=== PATIENT | female | born 1970 | race Caucasian/White ===

== ENCOUNTER → 2017-07-08 | Outpatient (CLI) | payer OTHER | LOC: M SMT 09:00 | PROVIDERS: ATTEND Physician Assistant Medical | DX: Z13.1 Encounter for screening for diabetes mellitus (principal) ==

== ENCOUNTER 2018-11-16 17:01 | Emergency (ER) | payer OTHER ==
[~2018-11-16] VITALS: Ht 152.4 cm; Wt 82.5 kg
[2018-11-16] MEDS ORDERED: DULO60CA35 (17:11)
[2018-11-16] MEDS ORDERED: VERA100C (17:11)
[2018-11-16] MEDS ORDERED: CYCL10TA (17:11)
[2018-11-16] MEDS ORDERED: OMEP20CA3 (17:11)
[2018-11-16 17:34] LABS: BASO # 0.1 10^3/uL (0.0-0.2); BASO % 1.1 % (0.0-1.0); EOS # 0.4 10^3/uL (0.0-0.50); EOS % 4.2 % (0.0-3.0); HEMATOCRIT 42.2 % (36.0-47.0); LYMPH # 2.7 10^3/uL (1.5-4.5); LYMPH % 30.8 % (24.0-44.0); MEAN CORPUSCULAR HEMOGLOBIN 29.7 pg (27.0-33.0); MEAN CORPUSCULAR HGB CONC 33.2 g/dl (32.0-36.5); MEAN CORPUSCULAR VOLUME 89.6 fl (80.0-96.0); MONO # 0.5 10^3/uL (0.0-0.8); MONO % 5.7 % (0.0-5.0); NEUTROPHILS # 5.1 10^3/uL (1.8-7.7); NEUTROPHILS % 57.6 % (36.0-66.0); PLATELET COUNT, AUTOMATED 295 10^3/uL (150-450); RED BLOOD COUNT 4.71 10^6/uL (4.00-5.40); WHITE BLOOD COUNT 8.9 10^3/uL (4.0-10.0)
[2018-11-16 18:02] LABS: ALT/SGPT 55 U/L (12-78); BILIRUBIN,DIRECT < 0.1 MG/DL (0.0-0.2); BILIRUBIN,TOTAL 0.3 MG/DL (0.2-1.0); BLOOD UREA NITROGEN 7 MG/DL (7-18); CARBON DIOXIDE LEVEL 29 MEQ/L (21-32); CHLORIDE LEVEL 102 MEQ/L (98-107); CREATININE FOR GFR 0.74 MG/DL (0.55-1.30); GLOMERULAR FILTRATION RATE > 60.0 (>51); GLUCOSE, FASTING 89 MG/DL (70-100); LIPASE 99 U/L (73-393); POTASSIUM SERUM 4.3 MEQ/L (3.5-5.1); SODIUM LEVEL 139 MEQ/L (136-145); TOTAL PROTEIN 7.4 GM/DL (6.4-8.2)
[2018-11-16] MEDS ORDERED: ZOFR4TAB16 PO (19:55)
[2018-11-16] MEDS ORDERED: TRAM50TA2 PO (19:55)
[2018-11-16] MEDS ORDERED: traMADol 50 MG TAB (BULK 4 TAB ED) PO ONE (20:00)
[2018-11-16] MEDS ORDERED: ONDANSETRON 4 MG ORAL DISINTEGRATING TAB (Q0162 PER 1MG) PO ONE (20:00)
[2018-11-16 20:12] VITALS: BP 122/74
== END 2018-11-16 20:15 | disposition home or self-care (01) ==
LOC: M ED 17:01
DX: K81.1 Chronic cholecystitis (principal); I51.9 Heart disease, unspecified; K21.9 Gastro-esophageal reflux disease without esophagitis; M79.7 Fibromyalgia; J30.2 Other seasonal allergic rhinitis; Z79.899 Other long term (current) drug therapy; Z88.8 Allergy status to other drugs, medicaments and biological substances
CPT/HCPCS: 80048; 80076; 81001; 83690; 85025; 87086; 99283; Q0162

== ENCOUNTER → 2018-12-13 | Outpatient (CLI) | payer OTHER ==
[~2018-12-13] MED LIST: CYCL10TA; DULO60CA35; OMEP20CA3; TRAM50TA2 PO; VERA100C; ZOFR4TAB16 PO
--- NOTE | 2018-12-16 21:09 | SLEEPHOME ---
DATE OF PROCEDURE: 12/13/2018 ORDERED BY: Jana Murray Diagnostic home sleep testing was performed due to concern for the obstructive sleep apnea syndrome in this patient with a history of excessive somnolence and nonrestorative sleep. For testing a nocturnal T3 respiratory monitoring device was used. Continuous record was made of pulse, oxygen saturation, airflow, chest, abdominal strain and body position. 10 hours and 59 minutes of data were reviewed. There were 10 hours and 16 minutes marked as time in bed. During the interval marked time in bed, there were 98 respiratory events identified of 10 seconds in duration or greater for a respiratory event index of 9.5. The events were obstructive, mixed and central, all told 45 central and mixed apneas were seen of a total of 98. Baseline pulse rate was 82 beats per minute, pulse rate ranged 64-110. Baseline saturation 93%, saturations fell to 87%. Testing was performed in both the supine and nonsupine positions. IMPRESSION: Abnormal home sleep testing with repetitive respiratory events and oxygen desaturations to 87% with a respiratory event index of 9.5 is consistent with the obstructive sleep apnea syndrome. RECOMMENDATIONS: Given the occurrence of central apneas, the patient should be referred for a formal sleep evaluation and in laboratory pressure titration. A bilevel device and backup rate may be necessary given the occurrence of central apneas.
== END ==
LOC: M SLEEP HO 10:26
PROVIDERS: ATTEND Nurse Practitioner Family
DX: R40.0 Somnolence (principal)

== ENCOUNTER → 2019-06-18 | Outpatient (CLI) | payer OTHER ==
[~2019-06-18] MED LIST changes: -OMEP20CA3; +OMEP20CA4
--- NOTE | 2019-06-21 16:28 | SLEEPCENT ---
DATE OF PROCEDURE: 06/18/2019 ORDERED BY: KACIE Robert Nocturnal polysomnography was performed for the titration of pressure therapy in this patient with obstructive sleep apnea syndrome based on clinical evaluation, confirmed by home testing revealing a respiratory event index of 9.5. For testing a [employer] full-face mask of small size was used, 4 cm of water pressure were applied to the circuit and the lights were extinguished. 8 hours and 26 minutes of data were reviewed. There were 393 minutes of sleep identified. Sleep latency was normal at 14 minutes. Rapid eye movement (REM) sleep was delayed at 360 minutes. Sleep architecture initially fragmented improved and there was a long period of REM sleep at the end of the study. Overall sleep efficiency was 79.3%. The patient's electrocardiogram showed a sinus rhythm with premature ventricular contractions (PVCs), average heart rate 62 beats per minute. EEG showed reasonably normal waveforms for awake and sleep. Respiratory events were best palliated with continuous positive airway pressure (CPAP) at a pressure of +10. There was some activity seen in the limb leads. Limb movement arousal index was 8.5. IMPRESSION: Obstructive sleep apnea syndrome (G47.33). RECOMMENDATIONS: Nightly use of pressure therapy 10 cm of water.
== END ==
LOC: M SLEEP 20:00
PROVIDERS: ATTEND Nurse Practitioner Family
DX: G47.33 Obstructive sleep apnea (adult) (pediatric) (principal)

== ENCOUNTER → 2019-11-03 | Outpatient (CLI) | payer OTHER ==
[~2019-11-03] MED LIST changes: +OMEP1CAP73; -OMEP20CA4; -VERA100C; +VERA100C4
[2019-11-03 15:42] LABS: BLOOD UREA NITROGEN 17 MG/DL (7-18); CALCIUM LEVEL 9.4 MG/DL (8.5-10.1); CARBON DIOXIDE LEVEL 25 MEQ/L (21-32); CHLORIDE LEVEL 107 MEQ/L (98-107); CREATININE FOR GFR 0.77 MG/DL (0.55-1.30); GLOMERULAR FILTRATION RATE > 60.0 (>51); GLUCOSE, FASTING 99 MG/DL (70-100); MAGNESIUM LEVEL 2.4 MG/DL (1.8-2.4); POTASSIUM SERUM 4.1 MEQ/L (3.5-5.1); SODIUM LEVEL 140 MEQ/L (136-145)
== END ==
LOC: M LAB 14:25
PROVIDERS: ATTEND Registered Nurse
DX: E66.01 Morbid (severe) obesity due to excess calories (principal)

== ENCOUNTER → 2019-12-08 | Outpatient (CLI) | payer OTHER ==
[~2019-12-08] MED LIST changes: +CYCL-707; -CYCL10TA
--- NOTE | 2019-12-08 08:04 | REP ---
Clinical: Post prandial right upper quadrant pain. Technique: Real time banegas scale ultrasound examination using curved array transducer. Findings: Liver and pancreas are normal in contour, size, echogenicity without focal hepatic or pancreatic lesion identified. The gallbladder is normal and without gallstones, wall thickening, or pericholecystic fluid. No biliary ductal dilatation is appreciated and the common bile duct measures 3.7 mm diameter. Right kidney is relatively normal in reniform shape without hydronephrosis and measures 11.4 x 5.6 x 3.9 cm; incidental Column of Abdi suggested. No ascites. Impression: Essentially normal right upper quadrant ultrasound. Electronically Signed by Samir Ye MD 12/08/2019 07:55 A
== END ==
LOC: M RAD 07:18
PROVIDERS: ATTEND Registered Nurse
DX: R10.11 Right upper quadrant pain (principal); Z98.84 Bariatric surgery status

== ENCOUNTER → 2019-12-15 | Outpatient (CLI) | payer OTHER ==
--- NOTE | 2019-12-15 10:27 | REP ---
HIDA SCAN WITH GALLBLADDER EJECTION FRACTION: Following the intravenous administration of 6.6 millicuries technetium 99m Mebrofenin, multiple images of the right upper quadrant are performed every 5 minutes for a period of 1 hour. Gallbladder is visualized at 10 minutes post injection. 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 At the 1-hour jg, 8 ounces of Ensure Enlive is ingested and further imaging performed for an additional hour. There is immediate biliary to bowel transit. Gallbladder ejection fraction is calculated to be 48%, which is within the normal range. 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 Normal gallbladder ejection fraction of 48%. Electronically Signed by Dylan Vigil MD 12/15/2019 12:54 P
== END ==
LOC: M RAD 07:07
PROVIDERS: ATTEND Registered Nurse
DX: R10.9 Unspecified abdominal pain (principal)
CPT/HCPCS: 78227; A9537

== ENCOUNTER → 2021-03-19 | Outpatient (CLI) | payer OTHER ==
--- NOTE | 2021-03-19 18:35 | REP ---
INDICATION: R10.2 PELVIC PAIN. Status post hysterectomy 2007 COMPARISON: CT 11/29/2009 TECHNIQUE: Transabdominal and endovaginal probes were utilized. FINDINGS: Vaginal cuff is intact with the uterus absent. No mass or fluid collection adjacent to the vaginal cuff. The right ovary is 2.9 x 1.7 x 1.7 cm. It has color flow within and resistive index of 0.54 on Doppler interrogation. There is a dominant follicle of about 11 mm. No mass. The left ovary is 2.4 x 1.6 x 1.7 cm. Doppler tracing shows resistive index 0.65 with normal color flow seen in that ovary there is no evidence of fluid adjacent to the ovary or mass. IMPRESSION: Status post hysterectomy with vaginal cuff intact. No adnexal mass or free fluid. Both ovaries well seen and show color flow with normal Doppler tracings, no evidence of torsion. Nothing acute. <Electronically signed by Fabian Kwok > 03/19/21 [id number]
== END ==
LOC: M WHC 15:21
PROVIDERS: ATTEND Specialist
DX: R10.2 Pelvic and perineal pain (principal)

== ENCOUNTER → 2021-04-03 | Outpatient (CLI) | payer OTHER ==
--- NOTE | 2021-04-08 17:52 | SLEEPHOME ---
DATE: 04/03/2021 ORDERED BY: KACIE Robert Diagnostic home sleep testing was performed due to concern for persistent obstructive sleep apnea syndrome in this patient with a prior history of same. For testing, a [employer] T3 respiratory monitoring device was used. Continuous record was made of pulse, oxygen saturation, air flow, chest and abdominal strain, and body position. Nine hours and 59 minutes of data were reviewed. There were 8 hours and 40 minutes marked as time in bed. During the interval marked time in bed, there were 44 respiratory events identified of 10 seconds in duration or greater for a respiratory event index of 5.1. The events were primarily obstructive and more common in the supine position Baseline pulse rate was 54. Pulse rate ranged 45 to 83. Baseline saturation was 94%. Saturations fell to 88%. Testing was performed in both the supine and nonsupine positions. IMPRESSION: Abnormal home sleep testing with repetitive respiratory events and oxygen desaturations to 88% with a respiratory event index of 5.1 is consistent with the obstructive sleep apnea syndrome. RECOMMENDATION: As the events were associated primarily with the supine position, sleep position retraining for avoidance of the supine posture is recommended. Pending clinical response, the patient may require referral [facility] re-institution of pressure therapy. cc: David Amaya PA-C
== END ==
LOC: M SLEEP HO 10:49
PROVIDERS: ATTEND Family Medicine
DX: G47.33 Obstructive sleep apnea (adult) (pediatric) (principal); Z98.84 Bariatric surgery status

== ENCOUNTER → 2021-05-01 | Outpatient (CLI) | payer OTHER ==
[~2021-05-01] MED LIST changes: +AMLO1TAB24 PO; +B-12100T2 PO; +BACL10TA2 PO; +BUSP15TA47 PO; +D31000TA2 PO; +FOLI1TAB11 PO; +LAMO100T3 PO; +OYST500C PO; +PANT40TA29 PO; +SERT50TA29 PO; +SUMA50TA2 PO; +ZONI100C17 PO
== END ==
LOC: M LABSMTC 11:42
PROVIDERS: ATTEND Anesthesiology
DX: Z01.812 Encounter for preprocedural laboratory examination (principal)

== ENCOUNTER 2021-05-06 10:13 | Day surgery (SDC) | payer OTHER ==
[~2021-05-06] VITALS: Ht 152.4 cm; Wt 57.5 kg
[~2021-05-06 10:13] MED LIST changes: +LR 1,000 ML IV ONE
[2021-05-06 10:34] LABS: HEMOGLOBIN 13.7 g/dl (12.0-15.5); MEAN CORPUSCULAR HEMOGLOBIN 30.5 pg (27.0-33.0); MEAN CORPUSCULAR HGB CONC 33.4 g/dl (32.0-36.5); MEAN CORPUSCULAR VOLUME 91.3 fl (80.0-96.0); PLATELET COUNT, AUTOMATED 301 10^3/uL (150-450); RED BLOOD COUNT 4.49 10^6/uL (4.00-5.40); WHITE BLOOD COUNT 6.4 10^3/uL (4.0-10.0)
[2021-05-06] MEDS ORDERED: propofoL 200 MG/20 ML VIAL As Ordered ONE (11:07)
[2021-05-06] MEDS ORDERED: LIDOCAINE 2% 100MG/5ML SDV (FOR ANES.) As Ordered ONE (11:07)
[2021-05-06] MEDS ORDERED: fentaNYL 250 MCG/5 ML INJECTION (J3010) As Ordered ONE (11:07)
[2021-05-06] MEDS ORDERED: ROCURONIUM BROMIDE 50 MG/5 ML VIAL As Ordered ONE (11:07)
[2021-05-06] MEDS ORDERED: ONDANSETRON 4MG/2ML VIAL As Ordered ONE (11:07)
[2021-05-06] MEDS ORDERED: dexameTHASONE 4 MG/ML 1ML VIAL (J1100 PER 1MG) As Ordered ONE (11:08)
[2021-05-06] MEDS ORDERED: MIDAZOLAM INJ 2MG/2ML VIAL (J2250 PER 1MG) As Ordered ONE (11:08)
[2021-05-06] MEDS ORDERED: KETOROLAC 60MG 2ML VIAL As Ordered ONE (11:08)
[2021-05-06] MEDS ORDERED: BUPIVACAINE HCL 0.25% 30ML VIAL As Ordered ONE (12:22)
[2021-05-06] MEDS ORDERED: ePHEDrine SULFATE 25 MG/5 ML(5MG/ML) SYRINGE As Ordered ONE (12:54)
[2021-05-06] MEDS ORDERED: PHENYLephrine 500MCG 5ML (100MCG/ML) SYRINGE As Ordered ONE (12:54)
[2021-05-06] MEDS ORDERED: SUGAMMADEX SODIUM 500 MG/5 ML VIAL (BRIDION) As Ordered ONE (13:29)
[2021-05-06] MEDS ORDERED: METOCLOPRAMIDE INJ 10MG/2ML VIAL (J2765 PER 1) As Ordered ONE (13:33)
--- NOTE | 2021-05-06 13:57 | ROOPDOC ---
[facility] Report Of Operation Report of Operation DATE OF PROCEDURE: 05/06/21 OPERATIVE REPORT: Preoperative diagnosis: Pelvic pain, ovarian cysts Postoperative diagnosis: Same. Procedure: Robotic-assisted laparoscopic bilateral salpingo-oophorectomy Surgeon: Luann Kenny M.D. [employer] Director: Aye Santillan NP Findings: Surgically absent uterus. Ovaries with bilateral follicular cysts. Normal upper abdomen. EBL: 10 mL's. Urine output: 50 mL's. Operative summary: Patient was taken to the operating room where general endotracheal anesthesia was induced. She was prepped and draped in sterile fashion in the supine position. A Smith Catheter was placed. A Periumbilical incision was made with a scalpel. A Veress needle was placed through this incision. Intra-abdominal location of Veress needle was assessed with saline filled syringe. A pneumoperitoneum was created. The Veress needle was removed. An 8 mm trocar using the Clicknationiport was inserted through this incision. Two 8 mm suprapubic ports were placed under direct visualization The patient was placed in Trendelenburg position. The da Tabitha surgical robot was docked to the ports. Using the fenestrated bipolar instrument and vessel sealer, the IP ligaments and broad ligaments were coagulated and incised. The ovaries and fallopian tubes were excised bilaterally. The da Tabitha surgical robot was undocked. 5 mm scope was inserted through the lateral port. Both specimens were placed in an Endo Catch bag. The bag was withdrawn through the periumbilical port. All instruments removed. The skin was closed with 4-0 Monocryl subcuticular sutures. Aye Santillan NP assisted with all aspects of the procedure. She helped position the patient. She helped insert the ports. She helped remove the spec imen. LUANN KENNY MD May 06, 2021 13:57
[2021-05-06] MEDS ORDERED: OXYC1TAB23 PO (14:00)
[2021-05-06] MEDS ORDERED: LR 1,000 ML IV SCH ×2 (14:20)
[2021-05-06] MEDS ORDERED: ONDANSETRON 4MG/2ML VIAL IV PRN (14:20)
[2021-05-06] MEDS ORDERED: fentaNYL 100 MCG/2 ML INJECTION (J3010) IV PRN (14:20)
[2021-05-06] MEDS ORDERED: HYDROMORPHONE HCL 0.5 MG/ 0.5 ML SYRINGE (J1170 PER 1) IV PRN (14:20)
[2021-05-06] MEDS ORDERED: PERCOCET 5MG/325MG TAB PO PRN (14:20)
[2021-05-06] MEDS: oxyCODONE 5MG TAB PO PRN ×2 (14:29→14:59)
[2021-05-06 15:55] VITALS: BP 113/60
== END 2021-05-06 16:17 | disposition home or self-care (01) ==
LOC: M SDC 10:13
PROVIDERS: ATTEND Specialist
DX: R10.2 Pelvic and perineal pain (principal); N83.11 Corpus luteum cyst of right ovary; N83.12 Corpus luteum cyst of left ovary; N83.01 Follicular cyst of right ovary; N83.02 Follicular cyst of left ovary; N80.9 Endometriosis, unspecified; R73.03 Prediabetes; M79.7 Fibromyalgia; K21.9 Gastro-esophageal reflux disease without esophagitis; E78.2 Mixed hyperlipidemia; Q07.00 Arnold-Chiari syndrome without spina bifida or hydrocephalus; E04.1 Nontoxic single thyroid nodule; G47.33 Obstructive sleep apnea (adult) (pediatric); I73.00 Raynaud's syndrome without gangrene; K22.70 Barrett's esophagus without dysplasia; M06.9 Rheumatoid arthritis, unspecified; G43.909 Migraine, unspecified, not intractable, without status migrainosus; F41.1 Generalized anxiety disorder; Z88.8 Allergy status to other drugs, medicaments and biological substances; Z79.899 Other long term (current) drug therapy; Z98.51 Tubal ligation status; Z98.84 Bariatric surgery status
CPT/HCPCS: 36415; 58661; 85027; 88305; J1100; J2250; J2370; J2405; J2765; J3010; S2900

== ENCOUNTER → 2021-06-12 | Outpatient (CLI) | payer OTHER ==
[~2021-06-12] MED LIST changes: -LR 1,000 ML IV ONE; +OXYC1TAB23 PO
--- NOTE | 2021-06-12 10:03 | REP ---
INDICATION: PAIN IN LEFT UPPER ARM COMPARISON: 08/31/2007 TECHNIQUE: Internal rotation, external rotation, and Y view. FINDINGS: Very minimal cortical irregularity at the acromioclavicular joint noted. Glenohumeral joint is intact and normal in appearance. No acute fracture or dislocation. No periarticular calcifications or further degenerative changes are appreciated. Subacromial space is normal. Surrounding soft tissues are unremarkable. IMPRESSION: Minimal age-related changes at the acromioclavicular joint. <Electronically signed by Samir Ye > 06/12/21 [id number]
--- NOTE | 2021-06-12 10:04 | REP ---
INDICATION: PAIN IN LEFT UPPER ARM COMPARISON: 08/31/2007 TECHNIQUE: AP, lateral, bilateral oblique views of the left elbow. FINDINGS: No acute fracture or dislocation is appreciated. Joint spaces and surrounding soft tissues appear essentially age-appropriate/normal. Lateral view demonstrates normal positioning to the anterior and posterior fat pads without evidence for effusion/hemarthrosis. Small spurring along the coronoid process of the proximal ulna identified on lateral radiograph. Surrounding soft tissues are unremarkable. IMPRESSION: Small spur forming along the coronoid process of the proximal ulna. Otherwise normal age-appropriate examination. <Electronically signed by Samir Ye > 06/12/21 1002
== END ==
LOC: M RAD 09:16
PROVIDERS: ATTEND Physician Assistant
DX: M25.722 Osteophyte, left elbow (principal); M79.622 Pain in left upper arm

== ENCOUNTER → 2021-12-07 | Outpatient (REF) | payer OTHER ==
[~2021-12-07] MED LIST changes: -D31000TA2 PO; +VITA100093 PO
== END ==
LOC: M LAB REF 14:32
PROVIDERS: ATTEND Nurse Practitioner Family
DX: R19.7 Diarrhea, unspecified (principal); R10.9 Unspecified abdominal pain

== ENCOUNTER → 2022-01-24 | Outpatient (CLI) | payer OTHER ==
[~2022-01-24] MED LIST changes: -ZONI100C17 PO; +ZONI100C67 PO
== END ==
LOC: M RAD 13:48
PROVIDERS: ATTEND Internal Medicine
DX: E04.2 Nontoxic multinodular goiter (principal)

== ENCOUNTER → 2022-09-11 | Outpatient (CLI) | payer OTHER | LOC: M PLAIMG 08:55 | PROVIDERS: ATTEND Nurse Practitioner Family | DX: M47.816 Spondylosis without myelopathy or radiculopathy, lumbar region (principal); M51.26 Other intervertebral disc displacement, lumbar region ==

== ENCOUNTER → 2023-01-28 | Outpatient (CLI) | payer MEDICARE, OTHER ==
[2023-01-28 12:10] LABS: BASO # 0.1 10^3/uL (0.0-0.2); BASO % 1.8 % (0.0-1.0); EOS # 0.3 10^3/uL (0.0-0.5); EOS % 5.4 % (0.0-3.0); HEMATOCRIT 39.6 % (36.0-47.0); HEMOGLOBIN 12.4 g/dl (12.0-15.5); LYMPH # 2.1 10^3/uL (1.5-5.0); LYMPH % 37.3 % (24.0-44.0); MEAN CORPUSCULAR HEMOGLOBIN 27.9 pg (27.0-33.0); MEAN CORPUSCULAR HGB CONC 31.3 g/dl (32.0-36.5); MONO # 0.5 10^3/uL (0.0-0.8); MONO % 9.2 % (2.0-8.0); NEUTROPHILS # 2.5 10^3/uL (1.5-8.5); NEUTROPHILS % 45.9 % (36.0-66.0); PLATELET COUNT, AUTOMATED 369 10^3/uL (150-450); RED BLOOD COUNT 4.45 10^6/uL (4.00-5.40); WHITE BLOOD COUNT 5.5 10^3/uL (4.0-10.0)
[2023-01-28 12:35] LABS: ALBUMIN 3.9 G/DL (3.2-5.2); ALKALINE PHOSPHATASE 84 U/L (46-116); ALT/SGPT 37 U/L (7.0-40); AST/SGOT 19 U/L (<34); BILIRUBIN,TOTAL 0.2 MG/DL (0.3-1.2); BLOOD UREA NITROGEN 9 MG/DL (9-23); CALCIUM LEVEL 9.5 MG/DL (8.5-10.1); CARBON DIOXIDE LEVEL 31 MMOL/L (20-31); CHLORIDE LEVEL 106 MMOL/L (98-107); CHOLESTEROL LEVEL 187 MG/DL (<200); CHOLESTEROL RISK RATIO 2.54 (<5); CPK CREATINE PHOSPHOKINASE 81 U/L (34-145); CREATININE FOR GFR 0.65 MG/DL (0.55-1.30); GLOMERULAR FILTRATION RATE > 60.0 (>51); GLUCOSE, FASTING 88 MG/DL (60-100); HDL CHOLESTEROL 73.5 MG/DL (>40); LDL CHOLESTEROL 90.3 MG/DL (<100); MB/CK RELATIVE INDEX 1.23 (< OR =4); NON-HDL-C 113.5 MG/DL; POTASSIUM SERUM 4.6 MMOL/L (3.5-5.1); SODIUM LEVEL 141 MMOL/L (136-145); TOTAL PROTEIN 6.8 G/DL (5.7-8.2); TRIGLYCERIDES LEVEL 116 MG/DL (<150)
[2023-01-28 12:36] LABS: THYROID STIMULATING HORMONE 0.869 uIU/ML (0.55-4.78)
[2023-01-28 12:37] LABS: FREE T4 0.78 NG/DL (0.89-1.76)
== END ==
LOC: M LAB 11:43
PROVIDERS: ATTEND Physician Assistant
DX: R07.89 Other chest pain (principal)

== ENCOUNTER → 2023-01-29 | Outpatient (CLI) | payer MEDICARE, OTHER ==
[~2023-01-29] MED LIST changes: +ISOVUE-370 76% 100ML VIAL As Ordered ONE
== END ==
LOC: M RAD 07:23
PROVIDERS: ATTEND Physician Assistant
DX: R07.89 Other chest pain (principal)
CPT/HCPCS: 71275; Q9967

== ENCOUNTER → 2023-02-16 | Outpatient (CLI) | payer MEDICARE, OTHER ==
[~2023-02-16] MED LIST changes: -ISOVUE-370 76% 100ML VIAL As Ordered ONE
[2023-02-16 12:56] LABS: ALT/SGPT 35 U/L (7.0-40); AST/SGOT 24 U/L (<34)
== END ==
LOC: M LAB 12:04
PROVIDERS: ATTEND Nurse Practitioner Family
DX: R79.89 Other specified abnormal findings of blood chemistry (principal)

== ENCOUNTER → 2023-05-27 | Outpatient (CLI) | payer MEDICARE, OTHER ==
[~2023-05-27] MED LIST changes: +GASTROGRAFIN SOLUTION 30ML ONE; +ISOVUE-370 76% 100ML VIAL ONE
== END ==
LOC: M PLAIMG 12:21
PROVIDERS: ATTEND Physician Assistant
DX: R10.10 Upper abdominal pain, unspecified (principal)
CPT/HCPCS: 74177; Q9963; Q9967

== ENCOUNTER → 2023-11-10 | Outpatient (CLI) | payer MEDICARE ==
[~2023-11-10] MED LIST changes: -GASTROGRAFIN SOLUTION 30ML ONE; -ISOVUE-370 76% 100ML VIAL ONE
== END ==
LOC: M SLEEP 20:00
PROVIDERS: ATTEND Nurse Practitioner Family
DX: G47.33 Obstructive sleep apnea (adult) (pediatric) (principal)

== ENCOUNTER 2023-12-18 10:57 | Outpatient (CLI) | payer MEDICARE ==
[2023-12-18 11:40] VITALS: BP 140/77; O2SAT 97
[2023-12-18] MEDS: IRON SUCROSE 500 MG in NS 250 ML OVER 4 HRS IV ONE (11:46)
[2023-12-18 15:46] VITALS: BP 116/59; O2SAT 95
== END 2023-12-18 15:46 ==
LOC: M INFU 10:57
PROVIDERS: ATTEND Family Medicine
DX: D50.9 Iron deficiency anemia, unspecified (principal); Z91.048 Other nonmedicinal substance allergy status
CPT/HCPCS: 96365; 96366; J1756

== ENCOUNTER → 2024-01-22 | Outpatient (CLI) | payer MEDICARE, MEDICAID | LOC: M WHC 08:59 | PROVIDERS: ATTEND Internal Medicine | DX: E04.2 Nontoxic multinodular goiter (principal) ==

== ENCOUNTER 2024-04-18 17:31 | Inpatient (IN) | payer MEDICARE, MEDICAID ==
[~2024-04-18] VITALS: Ht 152.4 cm; Wt 75.5 kg
[2024-04-18] MEDS: CHARCOAL ACTIVATED LIQUID 25GM/120ML BTL PO ONE (17:54)
[2024-04-18 18:11] LABS: BASO # 0.1 10^3/uL (0.0-0.2); BASO % 1.5 % (0.0-1.0); EOS # 0.6 10^3/uL (0.0-0.5); EOS % 5.9 % (0.0-3.0); HEMATOCRIT 44.1 % (36.0-47.0); HEMOGLOBIN 14.3 g/dl (12.0-15.5); LYMPH # 2.6 10^3/uL (1.5-5.0); MEAN CORPUSCULAR HGB CONC 32.4 g/dl (32.0-36.5); MEAN CORPUSCULAR VOLUME 86.3 fl (80.0-96.0); MONO # 0.7 10^3/uL (0.0-0.8); MONO % 7.7 % (2.0-8.0); NEUTROPHILS # 5.3 10^3/uL (1.5-8.5); NEUTROPHILS % 56.7 % (36.0-66.0); PLATELET COUNT, AUTOMATED 366 10^3/uL (150-450); RED BLOOD COUNT 5.11 10^6/uL (4.00-5.40); WHITE BLOOD COUNT 9.3 10^3/uL (4.0-10.0)
[2024-04-18] MEDS ORDERED: ETAN50PE INJ (18:11)
[2024-04-18] MEDS ORDERED: LAMO200T3 PO (18:11)
[2024-04-18] MEDS ORDERED: ESTR1TAB PO (18:11)
[2024-04-18] MEDS ORDERED: MYRB25TA PO (18:11)
[2024-04-18] MEDS ORDERED: TRAZ-252 PO (18:11)
[2024-04-18] MEDS ORDERED: LEFL20TA15 PO (18:11)
[2024-04-18] MEDS ORDERED: TEMA15CA2 PO (18:11)
[2024-04-18] MEDS ORDERED: NORT10CA2 PO (18:11)
[2024-04-18] MEDS ORDERED: PRAM0.252 PO (18:11)
[2024-04-18] MEDS ORDERED: OXYC10TA3 PO (18:11)
[2024-04-18] MEDS ORDERED: CETI-24 PO (18:11)
[2024-04-18] MEDS ORDERED: HYDR-643 PO (18:11)
[2024-04-18 18:42] LABS: ETHYL ALCOHOL (ETHANOL) < 0.003 % (0.000-0.010)
[2024-04-18 18:44] LABS: SALICYLATE LEVEL < 3.0 MG/DL (<30)
[2024-04-18 18:45] LABS: ALBUMIN 4.1 G/DL (3.2-5.2); ALKALINE PHOSPHATASE 102 U/L (46-116); ALT/SGPT 22 U/L (7.0-40); AST/SGOT 20 U/L (<34); BILIRUBIN,DIRECT < 0.1 MG/DL (<0.4); BILIRUBIN,TOTAL 0.2 MG/DL (0.3-1.2); BLOOD UREA NITROGEN 15 MG/DL (9-23); CALCIUM LEVEL 9.5 MG/DL (8.5-10.1); CARBON DIOXIDE LEVEL 28 MMOL/L (20-31); CHLORIDE LEVEL 106 MMOL/L (98-107); CREATININE FOR GFR 0.57 MG/DL (0.55-1.30); GLOMERULAR FILTRATION RATE > 60.0 (>51); GLUCOSE, FASTING 111 MG/DL (60-100); POTASSIUM SERUM 3.3 MMOL/L (3.5-5.1); SODIUM LEVEL 140 MMOL/L (136-145); TOTAL PROTEIN 7.8 G/DL (5.7-8.2)
[2024-04-18 18:47] LABS: THYROID STIMULATING HORMONE 0.771 uIU/ML (0.55-4.78)
[2024-04-18 18:53] LABS: AMPHETAMINES LEVEL URINE NEGATIVE (NEGATIVE); BENZODIAZEPINES URINE NEGATIVE (NEGATIVE); CANNABINOIDS URINE NEGATIVE (NEGATIVE); METHADONE URINE NEGATIVE (NEGATIVE); PHENCYCLIDINE URINE NEGATIVE (NEGATIVE)
[2024-04-18 18:54] LABS: BARBITURATES URINE NEGATIVE (NEGATIVE); COCAINE METABOLITE URINE NEGATIVE (NEGATIVE)
[2024-04-18 19:21] LABS: OPIATES URINE POSITIVE (NEGATIVE)
[2024-04-18 19:53] LABS: CPK CREATINE PHOSPHOKINASE 113 U/L (34-145)
[2024-04-18] MEDS ORDERED: MOM 30ML SUSPENSION UDC PO PRN (23:30)
[2024-04-18] MEDS ORDERED: diphenhydrAMINE 25MG CAP PO PRN (23:30)
[2024-04-19] MEDS ORDERED: ZOLO100T PO (01:28)
[2024-04-19] MEDS ORDERED: AMLO25TA PO (01:28)
[2024-04-19] MEDS ORDERED: NORT10CA2 PO (01:28)
[2024-04-19 01:30] VITALS: BP 152/83; TEMP 96.8; O2SAT 98
[2024-04-19] MEDS ORDERED: HOME MED LIST COMPLETE! XX SCH (01:35)
[2024-04-19] MEDS: traZODone 50 MG TAB PO PRN (02:07)
[2024-04-19] MEDS: SUMAtriptan SUCCINATE 25 MG TAB PO ONE (05:17)
[2024-04-19 06:21] VITALS: BP 115/55; TEMP 97.2; O2SAT 97
[2024-04-19] MEDS: IBUPROFEN 400MG TAB PO PRN (12:42)
[2024-04-19] MEDS: POTASSIUM CHLORIDE 10MEQ SR TABLET PO ONE (12:43)
[2024-04-19] MEDS: SUMAtriptan SUCCINATE 25 MG TAB PO PRN (16:58)
[2024-04-19 17:45] VITALS: BP 142/82; TEMP 97.3; O2SAT 99
[2024-04-19] MEDS: PANTOPRAZOLE 40MG TAB (PROTONIX) PO SCH (21:04)
[2024-04-19] MEDS: busPIRone 5 MG TAB PO SCH (21:04)
[2024-04-19] MEDS: lamoTRIgine 100MG TAB PO SCH (21:04)
[2024-04-19] MEDS: TEMAZEPAM 15 MG CAP PO SCH (21:05)
[2024-04-20 06:33] VITALS: BP 138/63; TEMP 97.3; O2SAT 97
[2024-04-20] MEDS: LEFLUNOMIDE 20MG TABLET (PATIENT'S OWN MED) PO SCH (14:25)
[2024-04-20 17:34] VITALS: BP 123/78; TEMP 97.9
[2024-04-20] MEDS: MAALOX 30 ML SUSP *UDC PO PRN (18:18)
[2024-04-20] MEDS: NORTRIPTYLINE 10 MG CAP PO SCH (20:16)
[2024-04-20] MEDS: PRAMIPEXOLE (MIRAPEX) 0.125 MG TAB PO SCH (20:16)
[2024-04-21 06:32] VITALS: BP 143/74; TEMP 97.7; O2SAT 97
[2024-04-21 08:14] VITALS: BP 149/85
[2024-04-21] MEDS ORDERED: BUSP5TA PO (09:33)
[2024-04-21] MEDS ORDERED: LAMO100T80 PO (09:33)
[2024-04-21] MEDS ORDERED: REST15CA PO (09:33)
[2024-05-10] MEDS ORDERED: TEMA15CA2 PO (10:10)
[2024-05-10] MEDS ORDERED: TRAZ-252 PO (10:10)
== END 2024-04-21 12:38 | disposition home or self-care (01) | DRG 881 ==
LOC: M ED 17:31 → M ED INP 23:29 → M PSY 04-19 00:51
PROVIDERS: ADMIT Psychiatry & Neurology Psychiatry; ATTEND Psychiatry & Neurology Psychiatry
DX: F32.A Depression, unspecified (principal); M79.7 Fibromyalgia; G47.00 Insomnia, unspecified; G47.33 Obstructive sleep apnea (adult) (pediatric); I10 Essential (primary) hypertension; M06.9 Rheumatoid arthritis, unspecified; E87.6 Hypokalemia; K21.9 Gastro-esophageal reflux disease without esophagitis; I73.00 Raynaud's syndrome without gangrene; G43.909 Migraine, unspecified, not intractable, without status migrainosus; E55.9 Vitamin D deficiency, unspecified; Z90.49 Acquired absence of other specified parts of digestive tract; Z90.79 Acquired absence of other genital organ(s); Z98.84 Bariatric surgery status; Z79.891 Long term (current) use of opiate analgesic; Z79.899 Other long term (current) drug therapy; Z88.8 Allergy status to other drugs, medicaments and biological substances; Z91.51 Personal history of suicidal behavior

== ENCOUNTER → 2024-07-06 | Outpatient (CLI) | payer MEDICARE, MEDICAID ==
[~2024-07-06] MED LIST changes: +AMLO25TA PO; +BUSP5TA PO; +CETI-24 PO; +ESTR1TAB PO; +ETAN50PE INJ; +HYDR-643 PO; +LAMO100T80 PO; +LAMO200T3 PO; +LEFL20TA15 PO; +MYRB25TA PO; +NORT10CA2 PO; +OXYC10TA3 PO; +PRAM0.252 PO; +REST15CA PO; +TEMA15CA2 PO; +TRAZ-252 PO; +ZOLO100T PO
== END ==
LOC: M RAD 08:44
PROVIDERS: ATTEND Nurse Practitioner Family
DX: M50.20 Other cervical disc displacement, unspecified cervical region (principal); M41.82 Other forms of scoliosis, cervical region

== ENCOUNTER → 2024-07-11 | Outpatient (CLI) | payer MEDICARE, MEDICAID | LOC: M RAD 15:06 | PROVIDERS: ATTEND Nurse Practitioner Family | DX: M50.20 Other cervical disc displacement, unspecified cervical region (principal); M47.892 Other spondylosis, cervical region ==

== ENCOUNTER 2024-07-18 06:30 | Outpatient (CLI) | payer MEDICARE, MEDICAID ==
[~2024-07-18] VITALS: Ht 152.4 cm; Wt 74.0 kg
[2024-07-18 07:05] VITALS: BP 118/71; O2SAT 97
[2024-07-18] MEDS: IRON SUCROSE 500 MG in NS 250 ML OVER 4 HRS IV ONE (07:47)
[2024-07-18 09:00] VITALS: BP 128/79; O2SAT 97
[2024-07-18 10:00] VITALS: BP 122/76; O2SAT 98
[2024-07-18 11:00] VITALS: BP 130/79; O2SAT 99
[2024-07-18 12:00] VITALS: BP 120/80; O2SAT 96
== END 2024-07-18 12:00 ==
LOC: M INFU 06:30
PROVIDERS: ATTEND Family Medicine
DX: D50.9 Iron deficiency anemia, unspecified (principal); Z91.048 Other nonmedicinal substance allergy status; Z88.8 Allergy status to other drugs, medicaments and biological substances
CPT/HCPCS: 96365; 96366; J1756

== ENCOUNTER → 2024-08-22 | Outpatient (CLI) | payer MEDICARE, MEDICAID | LOC: M PLAIMG 06:46 | PROVIDERS: ATTEND Nurse Practitioner Family | DX: M50.20 Other cervical disc displacement, unspecified cervical region (principal) ==

== ENCOUNTER 2024-10-18 10:33 | Outpatient (RCR) | payer MEDICARE, MEDICAID | END 2024-10-21 | LOC: M PT 10:33 | PROVIDERS: ATTEND Pain Medicine Pain Medicine | DX: M48.062 Spinal stenosis, lumbar region with neurogenic claudication (principal) ==

== ENCOUNTER 2024-11-07 08:31 | Emergency (ER) | payer MEDICARE, MEDICAID ==
[~2024-11-07] VITALS: Ht 152.4 cm; Wt 72.6 kg
[2024-11-07 10:04] LABS: BASO % 0.8 % (0.0-1.0); EOS # 0.2 10^3/uL (0.0-0.5); EOS % 4.5 % (0.0-3.0); HEMATOCRIT 54.1 % (36.0-47.0); HEMOGLOBIN 18.1 g/dl (12.0-15.5); LYMPH # 1.4 10^3/uL (1.5-5.0); LYMPH % 27.4 % (24.0-44.0); MEAN CORPUSCULAR HGB CONC 33.5 g/dl (32.0-36.5); MEAN CORPUSCULAR VOLUME 86.6 fl (80.0-96.0); MONO # 0.7 10^3/uL (0.0-0.8); NEUTROPHILS # 2.6 10^3/uL (1.5-8.5); NEUTROPHILS % 51.9 % (36.0-66.0); PLATELET COUNT, AUTOMATED 332 10^3/uL (150-450); RED BLOOD COUNT 6.25 10^6/uL (4.00-5.40); WHITE BLOOD COUNT 4.9 10^3/uL (4.0-10.0)
[2024-11-07] MEDS: ONDANSETRON 4MG 2ML VIAL IV ONE (10:13)
[2024-11-07] MEDS: NS (Normal Saline) 0.9% 1,000 ML IV ONE (10:14)
[2024-11-07 10:41] LABS: ALBUMIN 3.9 G/DL (3.2-5.2); ALKALINE PHOSPHATASE 84 U/L (35-104); ALT/SGPT 59 U/L (7.0-40); AST/SGOT 71 U/L (<34); BILIRUBIN,DIRECT < 0.1 MG/DL (<0.4); BILIRUBIN,TOTAL 0.3 MG/DL (0.3-1.2); BLOOD UREA NITROGEN 13 MG/DL (9-23); CALCIUM LEVEL 9.2 MG/DL (8.5-10.1); CARBON DIOXIDE LEVEL 26 MMOL/L (20-31); CHLORIDE LEVEL 101 MMOL/L (98-107); CREATININE FOR GFR 0.69 MG/DL (0.55-1.30); GLOMERULAR FILTRATION RATE > 60.0 (>51); GLUCOSE, FASTING 120 MG/DL (60-100); LIPASE 25 U/L (12-53); POTASSIUM SERUM 4.1 MMOL/L (3.5-5.1); SODIUM LEVEL 138 MMOL/L (136-145); TOTAL PROTEIN 7.7 G/DL (5.7-8.2)
[2024-11-07] MEDS ORDERED: ONDA-282 PO (12:23)
[2024-11-07 12:49] VITALS: BP 126/71; TEMP 97.1; O2SAT 99
== END 2024-11-07 12:48 | disposition home or self-care (01) ==
LOC: M ED 10:33
DX: A08.0 Rotaviral enteritis (principal); M79.7 Fibromyalgia; Z88.5 Allergy status to narcotic agent; Z88.8 Allergy status to other drugs, medicaments and biological substances; Z91.048 Other nonmedicinal substance allergy status; Z79.83 Long term (current) use of bisphosphonates; Z79.899 Other long term (current) drug therapy
CPT/HCPCS: 80048; 80076; 83690; 85025; 87486; 87507; 87581; 87633; 87798; 96361; 96374; 99283; J2405

== ENCOUNTER 2024-11-15 09:51 | Outpatient (RCR) | payer MEDICARE, MEDICAID ==
[~2024-11-15 09:51] MED LIST changes: +ONDA-282 PO
== END 2024-11-21 ==
LOC: M PT 09:51
PROVIDERS: ATTEND Pain Medicine Pain Medicine
DX: M48.062 Spinal stenosis, lumbar region with neurogenic claudication (principal)

== ENCOUNTER 2024-11-17 09:48 | Outpatient (RCR) | payer MEDICARE, MEDICAID | END 2024-11-21 | LOC: M PT 09:48 | PROVIDERS: ATTEND Pain Medicine Pain Medicine | DX: M62.838 Other muscle spasm (principal); M54.2 Cervicalgia ==

== ENCOUNTER 2024-12-20 07:00 | Outpatient (RCR) | payer MEDICARE, MEDICAID ==
[~2024-12-20 07:00] MED LIST changes: -VERA100C4; +VERA100C6
== END 2024-12-21 ==
LOC: M PT 07:00
PROVIDERS: ATTEND Pain Medicine Pain Medicine
DX: M62.838 Other muscle spasm (principal); M54.2 Cervicalgia